=== PATIENT | male | born 1940 | race Caucasian/White ===

== ENCOUNTER 2020-07-31 12:05 | Outpatient (RCR) | payer MEDICARE, SELFPAY | END 2020-08-24 23:59 | disposition home or self-care (01) | LOC: SPT 12:05 | PROVIDERS: Family Provider Nurse Practitioner; PCP Nurse Practitioner; Visit Provider Physician Assistant Medical | DX: R42 Dizziness and giddiness (principal) | CPT/HCPCS: 95992; 97161 ==

== ENCOUNTER 2022-12-04 07:15 | Emergency (ER) | payer MEDICARE, SELFPAY ==
[2022-12-04 07:16] VITALS: BP 124/74; PULSE 121; RESP 16; O2SAT 95; BMI 25.0
--- NOTE | 2022-12-04 07:16 | ED_ITS ---
HPI - Chest Pain General: Chief Complaint: Chest Pain Stated Complaint: chest pain/ new onset afib Time Seen by Provider: 12/04/22 07:16 History of Present Illness: Mr. Traore is an 82-year-old gentleman presenting to the emergency department for evaluation of chest discomfort and shortness of breath. Notes onset of symptoms this morning that awoke him from sleep. He substernal pressure associated with shortness of breath. EMS found the patient to be in atrial fibrillation with rapid ventricular response, denies history of similar. Does have a history of valvular heart disease though does not typically get chest pain, he does get short of breath. EMS administered aspirin and metoprolol for rate control with some transient improvement. No other specific changes in health, exacerbating, or alleviating factors identified. Onset (ago): hour(s) Timing of current episode: constant Prior episodes: No Onset: awoke with symptoms Severity: moderate Quality: heaviness Review of Systems General: Reports: 10 or more systems reviewed and unremarkable except in HPI and below PFSH ED PFSH: Medical History (Updated 12/09/22 @ 17:39 by Scout Yadav MD) No significant past medical history Surgical History (Updated 12/09/22 @ 17:39 by Scout Yadav MD) No significant past surgical history Physical Exam Const: COMMON NORMALS: alert GENERAL APPEARANCE: cooperative and well developed HENMT: COMMON NORMALS: normocephalic and atraumatic HEAD & SCALP: normocephalic and atraumatic Eye: COMMON NORMALS: conjunctivae normal CONJUNCTIVA: Yes conjunctivae normal SCLERA: sclerae normal Neck/C-Spine: COMMON NORMALS: supple GENERAL: Yes trachea midline Resp: COMMON NORMALS: clear to auscultation bilaterally EFFORT & INSP ECTION: Yes able to speak in complete sentences AUSCULTATION: clear to auscultation bilaterally Cardio: RATE: tachycardic RHYTHM: abnormal rhythm GI: COMMON NORMALS: Soft to palpation PALPATION: Yes Soft to palpation and No Tenderness to palpation present (GI) Extremity: GENERAL: Yes normal exam except as noted and No edema Neuro: COMMON NORMALS: moves all extremities SENSORIUM/ORIENTATION: Yes alert and No Orientation impaired Psych: COMMON NORMALS: mental status grossly normal and Normal thought process present THOUGHT PROCESS: Normal thought process present Course Vital Signs: Vital signs: Vital Signs Pulse Rate 65 12/04/22 10:49 Respiratory Rate 14 12/04/22 10:49 Blood Pressure 110/67 12/04/22 10:49 Pulse Oximetry 98 12/04/22 10:49 Oxygen Delivery Me thod Room Air 12/04/22 10:09 MDM - Chest Pain Medical Decision Making 82-year-old gentleman presenting with new onset atrial fibrillation and chest pain that woke him from sleep. Exam as above. Nontoxic. EKG demonstrates atrial fibrillation with rapid ventricular response, no STEMI. Labs with no significant hematologic abnormalities. Metabolic panel with elevated creatinine, no reported history of CKD. Positive range 2-hour delta troponin. Patient had spontaneous conversion of atrial fibrillation with IV fluids prior to administration of antiarrhythmic. Also treated during ED course with aspirin. I recommended admission for NSTEMI and elevated creatinine as well as new onset arrhythmia. Explained reasoning for admission as well as benefits. I also explained risks of leaving. The patient is oriented to person, place, and time, has the capacity to make decisions regarding the medical care offered. The patient speaks coherently and exhibits no evidence of having an altered level of consciousness or alcohol or drug intoxication to a point that would impair judg ment. They respond knowingly to questions about recommended treatment and alternate treatments including no further testing or treatment; participate in diagnostic and treatment decisions by means of rational thought processes; and understand the items of minimum basic medical treatment information with respect to that treatment (the nature and seriousness of the illness, the nature of the treatment, the probable degree and duration of any benefits and risks of any medical intervention that is being recommended, and the consequences of lack of treatment, and the nature, risks, and benefits of any reasonable alternatives). The patient understands they are welcome to return to the hospital at any time to receive the recommended care or any other care at any time, regardless of their ability to pay for such care. I discussed prescriptions and/or symptomatic cares (if applicable) including appropriate and responsible use, followup plan, and return precautions. Medical Records I reviewed the patient's medical records. Lab Data I reviewed the patient's lab results. 12/04/22 07:39 12/04/22 07:39 Laboratory Results WBC 9.2 10^3/uL (4.0-10.0) 12/04/22 07:39 RBC 5.35 10^6/uL (4.1-5.3) H 12/04/22 07:39 Hgb 16.5 g/dL (11.7-16.6) 12/04/22 07:39 Hct 48.3 % (42.0-52.0) 12/04/22 07:39 MCV 90.3 fl (80-94) 12/04/22 07:39 MCH 30.8 pg (28.0-34.0) 12/04/22 07:39 MCHC 34.2 g/dL (30.0-36.0) 12/04/22 07:39 RDW 13.0 % (12.1-15.1) 12/04/22 07:39 Plt Count 168 10^3/cmm (130-400) 12/04/22 07:39 MPV 10.9 fL (7.4-10.4) H 12/04/22 07:39 Neut % (Auto) 70.5 % 12/04/22 07:39 Lymph % (Auto) 18.8 % 12/04/22 07:39 Taylor % (Auto) 7.3 % 12/04/22 07:39 Eos % (Auto) 2.3 % 12/04/22 07:39 Baso % (Auto) 0.8 % 12/04/22 07:39 Neut # (Auto) 6.49 10^3/uL (1.8-7.7) 12/04/22 07:39 Lymph # (Auto) 1.7 10^3/uL (0.8-4.8) 12/04/22 07:39 Taylor # (Auto) 0.7 10^3/uL (0.2-0.9) 12/04/22 07:39 Eos # (Auto) 0.2 10^3/uL (0.0-0.8) 12/04/22 07:39 Baso # (Auto) 0.1 10^3/uL (0.0-0.1) 12/04/22 07:39 Nucleated RBC % (auto) 0 % 12/04/22 07:39 Nucleated RBCs # 0.0 /100WBC 12/04/22 07:39 PT 14.00 SECONDS (12.1-14.9) 12/04/22 07:39 INR 1.04 (0.8-1.2) 12/04/22 07:39 APTT 31.4 SECONDS (23.9-36.7) 12/04/22 07:39 Sodium 141 mmol/L (136-145) 12/04/22 07:39 Potassium 4.1 mmol/L (3.5-5.1) 12/04/22 07:39 Chloride 105 mmol/L (98-107) 12/04/22 07:39 Carbon Dioxide 25 mmol/L (22-29) 12/04/22 07:39 Anion Gap 15.1 (5-19) 12/04/22 07:39 BUN 23 mg/dL (8-23) 12/04/22 07:39 Creatinine 1.7 mg/dL (0.7-1.2) H 12/04/22 07:39 GFR Calculation Not Reportable 12/04/22 07:39 Glucose 108 mg/dL (65-115) 12/04/22 07:39 Calculated Osmolality 296 mOsm/kg (285-295) H 12/04/22 07:39 Calcium 9.2 mg/dL (8.5-10.5) 12/04/22 07:39 Magnesium 2.0 mg/dL (1.7-2.3) 12/04/22 07:39 Total Bilirubin 0.9 mg/dL (0.15-1.2) 12/04/22 07:39 AST 20 U/L (0-40) 12/04/22 07:39 ALT 8 U/L (0-41) 12/04/22 07:39 Alkaline Phosphatase 82 U/L (40-130) 12/04/22 07:39 Troponin T Baseline 31 ng/L (0-15) H 12/04/22 07:39 Troponin T 120 Minute 71.54 ng/L (0-15) H 12/04/22 09:22 Delta Troponin T 40.54 ABS# (0-10) H* 12/04/22 09:22 NT-Pro-B Natriuret Pep 238 pg/mL (0-450) 12/04/22 07:39 Total Protein 6.9 g/dL (6.6-8.7) 12/04/22 07:39 Albumin 3.9 g/dL (3.5-5.2) 12/04/22 07:39 Globulin 3.0 g/dL (1.3-4.6) 12/04/22 07:39 Critical Care Time Critical Care Time: Critical Care Time: Yes Total Critical Care Time: 35 Attestation: Due to a high probability of clinically significant, possibly life threatening deterioration, the patient required my highest level of attention and preparedness to intervene emergently and I personally spent this critical care time directly and personally managing the patient. This critical care time included obtaining a history; examining the patient; pulse oximetry; ordering and review of laboratory and imaging studies; arranging urgent treatment with development of a management plan; evaluation of patient's response to treatment; frequent reassessment; and, discussions with other providers as applicable. It was exclusive of separately billable procedures. Primary system involved is cardiac Discharge Plan Discharge Patient Disposition: Left Against Medical Advice Clinical Impression: Chest pain, Atrial fib/flutter, transient, Non-ST elevation OR (NSTEMI), C reatinine elevation Condition: Stable Prescriptions: New nitroglycerin 0.4 mg tablet, sublingual 0.4 mg sublingual Q5M PRN (Reason: chest pain) Qty: 30 0RF Rx Instructions: do not exceed 3 doses per episode Eliquis 2.5 mg tablet 2.5 mg PO BID Qty: 60 3RF No Action ginkgo biloba 40 mg Tablet 40 mg PO DAILY Rx Instructions: give with meal/snack tamsulosin 0.4 mg capsule 0.4 mg PO DAILY lisinopril 5 mg tablet 5 mg PO DAILY Miralax 17 gram/dose Powder 4 g PO QPM hydrochlorothiazide 12.5 mg tablet 12.5 mg PO DAILY Discharge Orders: Discharge ED (Routine); Ordered 12/04/22 Ordered By: Scout Yadav Discharge Diet: Usual diet Discharge Activity: Resume usual activity Patient Instructions: Apixaban (By mouth), A-fib (Atrial Fibrillation) (ED), Chest Pain (ED), High Troponin Levels (ED) Activity Restrictions/Additional Instructions: Thank you for visiting the emergency department. You were seen and evaluated for chest pain and arrhythmia referred to as atrial fibrillation which spontaneously improved. I do see evidence of stress on the heart which may be related to heart attack or due to the rapid heart rate. I strongly recommend admission which you are declining at this time. You are choosing to leave AGAINST MEDICAL ADVICE. I will prescribe Eliquis. Please continue your other medications. Please follow-up with your primary care provider. I will also message case management for cardiology follow-up. Return for anything that you are concerned about and feel needs emergency department evaluation. Stand Alone Forms: Against Medical Advice Coding Level of Care Code ED Senior Product Designer for [employer]
--- NOTE | 2022-12-04 07:34 | XR_ITS ---
WS: [id number] XR chest 1V portable [id number] REASON FOR EXAM: cp, afib FINDINGS: No examination for comparison. Moderate/significant and ectasia of the thoracic aorta. Widening of the upper mediastinum which most likely is due to tortuous ectatic origin of great vessels. Calcified granulomas disease in both hemithoraces. No focal or diffuse pulmonary parenchymal or pleur al abnormality. Moderate elevation of the right hemidiaphragm. 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 Mild to moderate changes of degenerative spondylosis in the mid and lower thoracic spine. 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 IMPRESSION: No acute lung or pleural abnormality. Moderate/significant atherosclerotic changes of the thoracic aorta and origins of the great vessels.
--- NOTE | 2022-12-04 07:34 | ECG_ITS ---
[facility] Test Date: 2022-12-04 Pat Name: Mulugeta Traore Department: Room: Gender: Male Registered Nurse Obstetrics: : 1940 Requested By: Scout Yadav Order Number: [id number] Tanna MD: Conner Razo M.D. Measurements Intervals [place] Rate: 123 P: 0 CA: 0 QRS: -26 QRSD: 98 T: 71 QT: 324 QTc: 464 Interpretive Statements ATRIAL FIBRILLATION WITH RAPID VENTRICULAR RESPONSE BORDERLINE LEFT AXIS DEVIATION [QRS AXIS < -20] NONSPECIFIC ST & T-WAVE ABNORMALITY ABNORMAL RHYTHM ECG No previous ECG available for comparison Electronically Signed On 12-05-2022 9:27:19 CDT by Conner Razo M.D. [id number]
[2022-12-04] MEDS: sodium chloride 0.9% 1,000 ML 999 ML IV (07:54)
[2022-12-04 08:02] LABS: Basophils # 0.1 10^3/uL (0.0-0.1); Basophils % 0.8 %; Eosinophils # 0.2 10^3/uL (0.0-0.8); Eosinophils % 2.3 %; Hematocrit 48.3 % (42.0-52.0); Hemoglobin 16.5 g/dL (11.7-16.6); Lymphocytes # 1.7 10^3/uL (0.8-4.8); Lymphocytes % 18.8 %; Mean Corpuscular HGB Conc 34.2 g/dL (30.0-36.0); Mean Corpuscular Hemoglobin 30.8 pg (28.0-34.0); Mean Corpuscular Volume 90.3 fl (80-94); Mean Platelet Volume 10.9 fL (7.4-10.4); Monocytes # 0.7 10^3/uL (0.2-0.9); Monocytes % 7.3 %; Neutrophils # 6.49 10^3/uL (1.8-7.7); Neutrophils % 70.5 %; Nucleated Red Blood Cells % 0 %; Platelet Count 168 10^3/cmm (130-400); Red Blood Count 5.35 10^6/uL (4.1-5.3); White Blood Count 9.2 10^3/uL (4.0-10.0)
[2022-12-04 08:07] LABS: INR 1.04 (0.8-1.2)
[2022-12-04 08:08] LABS: Partial Thromboplastin Time 31.4 SECONDS (23.9-36.7)
[2022-12-04 08:22] LABS: Troponin(5th) Baseline 31 ng/L (0-15)
[2022-12-04 08:31] VITALS: BP 125/77; PULSE 70; RESP 14; O2SAT 94
[2022-12-04 08:31] LABS: Alanine Aminotransferase 8 U/L (0-41); Albumin Level 3.9 g/dL (3.5-5.2); Alkaline Phosphatase 82 U/L (40-130); Blood Urea Nitrogen 23 mg/dL (8-23); Calcium 9.2 mg/dL (8.5-10.5); Carbon Dioxide 25 mmol/L (22-29); Chloride 105 mmol/L (98-107); Glucose 108 mg/dL (65-115); NT Pro B Type Natriuretic Pept 238 pg/mL (0-450); Osmolality Calculated 296 mOsm/kg (285-295); Sodium 141 mmol/L (136-145); Total Bilirubin 0.9 mg/dL (0.15-1.2); Total Protein 6.9 g/dL (6.6-8.7)
--- NOTE | 2022-12-04 08:33 | PC.NURSE ---
Pt noted to be in NSR on monitor. Denies pain or SOB at this time. MD aware. Diltiazem held at this time
[2022-12-04 08:38] LABS: Anion Gap 15.1 (5-19); Aspartate Amino Transferase 20 U/L (0-40); Potassium 4.1 mmol/L (3.5-5.1)
--- NOTE | 2022-12-04 09:43 | ECG_ITS ---
[facility] Test Date: 2022-12-04 Pat Name: Mulugeta Traore Department: Room: Gender: Male Physician Pediatrician: : 1940 Requested By: Scout Yadav Order Number: [id number] Tanna MD: Conner Razo M.D. Measurements Intervals [place] Rate: 65 P: 38 MT: 165 QRS: -18 QRSD: 93 T: 48 QT: 424 QTc: 443 Interpretive Statements SINUS RHYTHM Compared to ECG 12/04/2022 07:22:00 Atrial fibrillation no longer present T-wave abnormality no longer present Electronically Signed On 12-05-2022 9:31:17 CDT by Conner Razo M.D. [id number]
[2022-12-04 10:09] VITALS: BP 114/60; PULSE 67; RESP 14; O2SAT 96
[2022-12-04 10:14] LABS: Troponin 5 2HR 71.54 ng/L (0-15)
[2022-12-04 10:16] LABS: Troponin 5 2HR Delta 40.54 ABS# (0-10)
[2022-12-04] MEDS: aspirin 81 mg Chew Tablet 324 MG PO (10:28)
[2022-12-04 10:49] VITALS: BP 110/67; PULSE 65; RESP 14; O2SAT 98
--- NOTE | 2022-12-04 11:00 | DCPLANNER ---
Addendum entered by Vanessa Shaw 12/05/22 10:27: senior national account manager received the following message from the [facility] care [facility] regarding follow up appointment: Patient stated he does not want to be seen at this time. Thank you. Original Note: senior national account manager had message to schedule a follow up appointment for patient with cardiology. senior national account manager sent patients information to the front office staff at [facility]. Patients information will be printed and reviewed. Clinic will call patient with appointment information.
--- NOTE | 2022-12-04 13:24 | DCPLANNER ---
heavy equipment rental manager called patient due to no primary care physician - patient stated that he sees Vinny Lee.
== END 2022-12-04 10:50 | disposition left against medical advice (07) ==
PROVIDERS: Emergency Provider Emergency Medicine; PCP Family Medicine
DX: I21.4 Non-ST elevation (NSTEMI) myocardial infarction (principal); I48.92 Unspecified atrial flutter; I48.91 Unspecified atrial fibrillation; R79.82 Elevated C-reactive protein (CRP)
CPT/HCPCS: 36415; 71045; 80053; 83735; 83880; 84484; 85025; 85610; 85730; 93005; 96360; 96361; 99285; J7030

== ENCOUNTER → 2023-02-22 11:26 | Outpatient (BNVA) | payer MEDICARE, SELFPAY | PROVIDERS: PCP Family Medicine; Visit Provider Emergency Medicine | DX: M79.672 Pain in left foot (principal) | CPT/HCPCS: 80048; 84550 ==

== ENCOUNTER → 2023-12-30 09:26 | Outpatient (BNVA) | payer MEDICARE, SELFPAY | PROVIDERS: PCP Family Medicine; Visit Provider Nurse Practitioner Family | DX: D48.5 Neoplasm of uncertain behavior of skin (principal); L57.8 Other skin changes due to chronic exposure to nonionizing radiation; L81.4 Other melanin hyperpigmentation; D22.39 Melanocytic nevi of other parts of face; L57.0 Actinic keratosis | CPT/HCPCS: 17000; 17280; 17281; 99203 ==